=== PATIENT | male | born 1965 | race African-American/Black ===

== ENCOUNTER 2025-08-04 14:29 | Outpatient (AMB) | payer MEDICARE, SELFPAY ==
--- OUTSIDE RECORDS SUMMARY | 2025-07-29 23:59 | XMS_ITS | Continuity of Care Document ---
Author Organization [facility] Address [address] [place] [id number]- Care Team Providers Care Rn Training Name Role Phone Ian GALLOWAY, Samina Villarreal Primary [facility] Phys[id number] Date(s): 06/25/25 - 07/29/25 [facility] [address] [place] [address]- Attending Physician: Tim Pacheco MD Admitting Physician: Tim Pacheco MD Referring Physician: Not on Staff, Referring MD Encounter Type: Pre-OutPatient One Time Allergies, Adverse Reactions, Alerts No Known Allergies Medications aspirin 81 mg oral tablet, chewable 81 mg, By Mouth, Every 12 hours, # 90 tablet, Refills 0, Tot. Refills 0, Maintenance, 01/20/25 9:29:00 AM EDT, Route to Pharmacy Electronically, [id number], Partial fill upon patient request if the prescription is for a schedule II opioid drug., 203, cm, 01/20/25 7:53:00 EDT, Height, 120, kg, 01/20/25 7:53:00 EDT, Dry Weight Start Date: 01/20/25 Status: Ordered Medication Dispense Status: Completed Quantity: 90.0 Unit: tablet Total Allowed Fills: 1 Fills Dispensed: 0 atorvastatin 40 mg oral tablet 1 tablet = 40 mg, By Mouth, Daily, # 90 tablet, 0 Refills, Maintenance, 10/02/24 1:48:00 AM EST, Tablet, Partial fill upon patient request if the prescription is for a schedule II opioid drug. Start Date: 10/02/24 Status: Ordered Medication Dispense Status: Completed Quantity: 90.0 Unit: tablet Total Allowed Fills: 1 Fills Dispensed: 0 carvedilol 6.25 mg oral tablet 6.25 mg, 1, tablet, By Mouth, 2 times a day, # 60 tablet, Refills 0, Maintenance, 10/02/24 1:49:00 AM EST, Partial fill upon patient request if the prescription is for a schedule II opioid drug. Start Date: 10/02/24 Status: Ordered Medication Dispense Status: Completed Quantity: 60.0 Unit: tablet Total Allowed Fills: 1 Fills Dispensed: 0 furosemide 40 mg oral tablet 40 mg, 1, tablet, By Mouth, 2 times a day, # 30 tablet, Refills 0, Maintenance, 10/02/24 1:50:00 AMEST, Partial fill upon patient request if the prescription is for a schedule II opioid drug. Start Date: 10/02/24 Status: Ordered Medication Dispense Status: Completed Quantity: 30.0 Unit: tablet Total Allowed Fills: 1 Fills Dispensed: 0 gabapentin 300 mg oral capsule 300 mg, 1, capsule, By Mouth, Daily at bedtime, Refills 0, Maintenance, 10/02/24 1:49:00 AM EST, Partial fill upon patient request if the prescription is for a schedule II opioid drug. Start Date: 10/02/24 Status: Ordered Medication Dispense Status: Completed Total Allowed Fills: 1 Fills Dispensed: 0 metFORMIN 500 mg oral tablet 1 tablet = 500 mg, By Mouth, 2 times a day, # 180 tablet, 0 Refills, Maintenance, 10/02/24 1:49:00 AM EST, Tablet, Partial fill upon patient request if the prescription is for a schedule II opioid drug. Start Date: 10/02/24 Status: Ordered Medication Dispense Status: Completed Quantity: 180.0 Unit: tablet Total Allowed Fills: 1 Fills Dispensed: 0 nortriptyline 50 mg oral capsule 50 mg, 1, capsule, By Mouth, 2 times a day, # 270 capsule, Refills 0, Maintenance, 10/02/24 1:48:00AM EST, Partial fill upon patient request if the prescription is for a schedule II opioid drug. Start Date: 10/02/24 Status: Ordered Medication Dispense Status: Completed Quantity: 270.0 Unit: capsule Total Allowed Fills: 1 Fills Dispensed: 0 Tylenol 325 mg oral tablet 650 mg, 2, tablet, By Mouth, Every 4 hours, PRN, # 120 tablet, Refills 0, Tot. Refills 0, Maintenance, for pain, 01/20/25 9:29:00 AM EDT, Route to Pharmacy Electronically, [facility] #[id number],Partial fill upon patient request if the prescription is for a schedule II opioid drug., 203, cm, 01/20/25 7:53:00 EDT, Height, 120, kg, 01/20/25 7:53:00 EDT, Dry Weight Start Date: 01/20/25 Status: Ordered Medication Dispense Status: Completed Quantity: 120.0 Unit: tablet Total Allowed Fills: 1 Fills Dispensed: 0 Problem List Condition Confirmation Course Effective Dates Status Health St atus Informant Pacemaker Confirmed Active Diabetes mellitus Confirmed Active Diastolic heart failure with preserved ejection fraction Confirmed Active HLD (hyperlipidemia) Confirmed Active 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 Urinary tract infection Confirmed Active Social History Social History Type Response Smoking Status Never (less than 100 in lifetime) entered on: 10/01/24 Sexual Orientation Self described orien tation: ; Straight or heterosexual Sex Sex Representation Male (finding) Patient Care team information Care Team Personnel Name: Savannah Llanes Position: [facility] Outreach Member Role: Lifetime Consulting Physician Name: Manuel Jauregui RN Position: [facility] RN Member Role: Primary Care Nurse Name: Ian GALLOWAY, Samina Villarreal Position: Reference Physician Member Role: PCP Address: [address] [place] [address] Telecom: Care Team Related Persons Name: ANTONIO TATUM Insurance Providers Guarantor name: RONA Health Plan Information #: 1 Payer: [facility] OPT Payer Identifier: NA Member Number: [id number] Group Number: [facility] Subscriber Identifier: [id number] Relationship to Subscriber: self Coverage Type: Medicare Managed Care (Includes Medicare Advantage Plans) Coverage Verification Date: RONA Telecom: Address: Health Plan Information #: 2 Payer: [employer] Payer Identifier: NA Member Number: [id number] Group Number: Subscriber Identifier: [id number] Relationship to Subscriber: self Coverage Type: MEDICAID Coverage Verification Date: RONA Telecom: Address:
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
[2025-08-04 14:49] VITALS: BP 140/80; PULSE 68; O2SAT 97; BMI 29.7
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
--- OUTSIDE RECORDS SUMMARY | 2025-08-04 18:51 | XMS_ITS | Encounter Summary ---
Author Organization [facility] Address [address] [place] [address] Care Team Providers Care Aerial Photographer Name Role Phone Isaias Tuttle Primary Care Provider [phone] Reason for Visit * Reason Onset Date Comments Transfer of care 08/03/2025 Encounter Details Date Type Department Care Team (Late st Contact Info) Description 08/03/2025 Telephone [facility] [address] [place] [phone] Bijan Hidalgo MD [address] [place] [address] [address] [place] [phone] Social History Tobacco Use Types Packs/Day Years Used Date Smoking Tobacco: Former Cigarettes Cigars Smokeless Tobacco: Never Comments:Cigars ocassionally Alcohol Use Standard Drinks/Week Comments Not Currently 0 (1 standard drink = 0.6 oz pur e alcohol) ocassional - once per month Sex and Gender Information Value Date Recorded Sex Assigned at Not on file Legal Sex Male 10:35 AM EST Gender Identity Not on file Sexual Orientation Not on file documented as of this encounter Progress Notes * Mei Flores - 08/04/2025 2:52 PM EDT 08/04/25 I received the CAIN from Dr. Calderon signed no . She will not take on this patient at this time. * Mei Flores - 08/03/2025 3:50 PM EDT 08/03/25 I received the CAIN from the [facility]. I will give it to Dr. Calderon. Please note that mahesh been refusing CAIN due to the fact that she has reduced some of her time in the office. I will give it to her and will see what she says. * Apolonia Burns - 08/03/2025 1:48 PM EDT 08/03/25. I received the signed Transfer of Care Form back from Dr Hidalgo. I sent it to Agatha Flores at the [facility] office for Dr Calderon to sign. * Apolonia Burns - 08/03/2025 1:28 PM EDT 08/03/25. Transfer of Care Form given to Dr Hidalgo's medical record librarians teacher for him to sign. * Klaudia Olson - 08/03/2025 11:15 AM EDT The patient would like to transfer care from Dr. Hidalgo to Dr. Calderon. I have filled out transfer of care paperwork and handed it to you. documented in this encounter Plan of Treatment Upcoming Encounters Date Type Department Care Team (Late st Contact Info) Description 08/05/2025 3:15 PM EDT Clinical Support [facility] [address] [place] [phone] 01/18/2026 9:00 AM EDT Ancillary Procedure [facility] [address] [facility] [address] [place] [phone] documented as of this encounter Goals Goal Patient Goal Type Associated Problems Recent Progress Patient-Stated? Author Decrease Wound Volume by X% by date (in notes) Care Plan Impaired Tissue On track( 025 4:33 PM EDT) Marisol Suarez RN Patient [...] needed related to ulceration/compr omised skin integrity. No Marisol Hennessy RN documented as of this encounter Visit Diagnoses Not on filedocumented in this encounter Additional Health Concerns Active Problems Noted Date Diagnosed Date Impaired Tissue 10/28/2024 Education needed on impact of smoking on wound 0 10/28/2024 Education needed related to ulceration/compromised skin integrity. 10/28/2024 Infection Onset Date Last Indicated Resolved Time ESBL 09/25/2024 10/28/2024 documented as of this encounter Care Teams Aerial Photographer Relationship Specialty Start Date End Date Isaias Tuttle PA [address] [place] [address] PCP - General Internal Medicine 07/22/25 documented as of this encounter
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
--- OUTSIDE RECORDS SUMMARY | 2025-08-04 18:51 | XMS_ITS | Clinical Summary ---
Author Organization [facility] Address [address] [place] [address] Phone Care Team Providers Care Operations Vocational Instructor Name Role Phone Isaias Tuttle PA-C Primary Care Provider [phone] Allergies No known active allergies Medications aspirin 81 MG EC tablet Take 81 mg by mouth daily. 5 Active carvedilol (COREG) 6.25 MG tablet Take 6.25 mg by mouth 2 (two) times a day with meals. 5 Active cholecalciferol (VITAMIN D3) 50,000 unit capsule Take 50,000 Units by mouth once a week. 5 Active furosemide (LASIX) 40 MG tablet Take 40 mg by mouth 2 (two) times a day. 4 Active gabapentin (NEURONTIN) 300 MG capsule Take 300 mg by mouth daily. 4 Active ketoconazole 2 % cream Apply 1 Application topically as needed. 4 Active metFORMIN (GLUCOPHAGE) 500 MG tablet Take 500 mg by mouth 2 (two) times a day with meals. 4 Active sulfamethoxazol e-trimethoprim (BACTRIM DS) 800-160 mg per tablet Take 1 tablet by mouth 2 (two) times a day. Active tadalafiL (CIALIS) 20 MG tablet Take 20 mg by mouth daily as needed. 5 Active selenium sulfide 2.25 % Sham Use in the shower, lather into entire body and let sit for 5 minutes and then wash out. Alternate with the ketoconazole shampoo 4 09/16/20 25 Active polyethylene glycol (MIRALAX) 17 gram packet Take 17 g by mouth daily as needed. Active nortriptyline (PAMELOR) 50 MG capsule Take 50 mg by mouth 2 (two) times a day. 4 Active atorvastatin (LIPITOR) 40 MG tablet Take 1 tablet (40 mg total) by mouth daily. 90 tablet 3 5 Active fluconazole (DIFLUCAN) 150 MG tablet Take 1 tablet (150 mg total) by mouth daily as needed (yeast infection - buttermaker helper antibiotics). 10 tablet 5 Active ketoconazole (NIZORAL) 2 % shampoo Apply topically. Apply to the affected area every Saturday, Saturday and Saturday. Use in the shower, lather into entire body and let sit for 5 minutes and then wash out. Alternate with the selsun blue shampoo. 4 09/12/20 25 Active Active Problems Problem Noted Date Diagnosed Date Routine general medical exam ination at a health care facility 06/08/2025 Assessment & Plan (06/08/2025 1:12 PM EDT): We will obtain a CMP, hemoglobin A1c, TSH and lipid panel Annual physical 1 year Mixed hyperlipidemia 06/08/2025 Chronic congestive heart failure 06/08/2025 Type 2 diabetes mellitus wit hout complication, without long-term current use of insulin 06/08/2025 Osteomyelitis 06/08/2025 Flu vaccine need 06/08/2025 Encounters Date Type Department Care Team Description 07/22/2025 Refill [facility] [address] [place] [address] Isaias Tuttle PA-C Medication Refill 07/11/2025 Refill [facility] [address] [facility] [place] [address] Isaias Tuttle PA-C Medication Refill 06/08/2025 1:00 PM EDT Office Visit [facility] [address] [place] [address] Isaias Tuttle PA-C Routine general medical examination at a health care facility (Primary Dx); Flu vaccine need; Mixed hyperlipidemia; Type 2 diabetes mellitus without complication, without long-term current use of insulin; Chronic congestive heart failure, unspecified heart failure type; Osteomyelitis, unspecified site, unspecified type 06/08/2025 Refill [facility] [address] [place] [address] Isaias Tuttle PA-C Request For Order(s) 06/08/2025 Transcribe Orders [facility] [address] [place] [address] Isaias Tuttle PA-C Routine general medical examination at a health care facility (Primary Dx); Mixed hyperlipidemia; Type 2 diabetes mellitus without complication, without long-term current use of insulin 06/08/2025 Orders Only [facility] [address] [place] [address] Ashley Bateman CMA 06/08/2025 Documentation [facility] [address] [place] [address] Isaias Tuttle PA-C from Last 3 Months Immunizations Immunization Administration Dates Next Due COVID-19 (Pre-07/29) Pfizer Vaccine, mRNA, PF 10/09/2021,01/22/2021,12/31/2020 COVID-19 Moderna Spikevax Vaccine 12+ 09/17/2023 INFLUENZA, SPLIT VIRUS, TRIVALENT PF 06/08/2025 Influenza Quadrivalent Preservative Free IM 09/06,10/31/2020,07/17/2019 Pneumococcal polysaccharide PPSV23 05/26/2009 Tdap 05/26/2009 Zoster recombinant 10/27/2020,10/14/2019, 019 Family History Medical History Relation Comments Atrial fibrillation Brother 1 Diabetes Brother 2 Obesity Brother 2 No Known Problems Brother 3 No Known Problems Daughter 1 No Known Problems Daughter 2 Stroke Father Heart attack Maternal Grandfather No Known Problems Mother No Known Problems Son Relation Status Comments Brother 1 Alive Brother 2 Alive Brother 3 Alive Daughter 1 Alive Daughter 2 Alive Father Alive Maternal Grandfather Mother Alive Son Alive Social History Tobacco Use Types Packs/Day Years Used Date Smoking Tobacco: Some Days Cigars Smokeless Tobacco: Never Tobacco Cessation:Ready to Q uit: Not Asked; Counseling Given: Not Answered Comments:1-2 x year Alcohol Use Standard Drinks/Week [...] high school, GED, job training, learning the [place]ym[place] language, technical skills, or developing parenting skills)? [...] on file Sexual Orientation Not on file Last Filed Vital Signs Vital Sign Reading Time Taken Comments Blood Pressure 120/68 06/08/2025 1:11 PM EDT Pulse 75 06/08/2025 1:11 PM EDT Temperature - - Respiratory Rate 16 06/08/2025 1:11 PM EDT Oxygen Saturation 95% 06/08/2025 1:11 PM EDT Inhaled Oxygen Concentration - - Weight - - Height - - Body Mass Index - - Plan of Treatment Upcoming Encounters Date Type Department Care Team (Late st Contact Info) Description 09/08/2025 8:40 AM EST Office Visit [facility] [address] [place] [address] Isaias Tuttle PA-C [address] [place] [address] [email or web address] Health Maintenance Due Date Last Done Comments HEPATITIS C SCREENING 1983 HIV ONE-TIME SCREENING (18-65 YEARS) 1983 PNEUMOCOCCAL VACCINES (50+ years) (2 of 2 - PCV) 05/26/2010 05/26/2009 COLOGUARD 2010 COLONOSCOPY 2010 COLORECTAL CANCER SCREENING 2010 FIT TEST 2010 FOBT 2010 SIGMOIDOSCOPY 2010 VIRTUAL COLONOSCOPY 2010 RSV VACCINE (1 - Risk 50-74 years 1-dose series) 2015 Adult Td,Tdap Booster 05/26/2019 05/26/2009 COVID-19 VACCINE ( season) 2025 09/17/2023, 10/09/2021, 01/22/2021, Additional history exists DIABETIC EYE EXAM 06/08/2025 02/12/2023, 02/08/2022 URINE MICROALBUMIN/CREATININE RATIO 06/08/2025 CREATININE LEVEL 09/14/2025 09/14/2024 HEMOGLOBIN A1C 11/07/2025 05/07/2025, 10/16/2023 BLOOD PRESSURE 12/06/2025 06/08/2025 DEPRESSION SCREENING 06/02/2026 06/02/2025 SMOKING Hx and SMOKELESS TOBACCO SCREENING 06/08/2026 06/08/2025 ZOSTER VACCINES Completed 10/27/2020, 05/2020, 06/29/2019 INFLUENZA VACCINE Completed 06/08/2025, , 10/31/2020, Additional history exists HEPATITIS A VACCINES Aged Out No long er eligible based on patient's age to complete this topic HIB VACCINES Aged Out No longer eligi ble based on patient's age to complete this topic MENINGOCOCCAL VACCINES (ACWY) Aged Out No longer eligible based on patient's age to complete this topic MENINGOCOCCAL VACCINES (B) Aged Out N o longer eligible based on patient's age to complete this topic Medical Devices Not on file Procedures Procedure Name Priority Date/Time Associated Diagnosis Comments OUTSIDE SERUM CREATININE LEVEL Routine 09/14/2024 from Last 3 Months or Most Recently Relevant to Health Maintenance Results * (ABNORMAL) Outside Serum Creatinine Level (09/14/2024) Creatinine, serum - External 0.64(A) 0.8 - 1.3 mg/dL Historical Provider LAB BLOOD ORDERABLES Karen l Result from Last 3 Months or Most Recently Relevant to Health Maintenance Insurance MEDICARE PART A & B CARE MEDICARE REPLACEMENT MEDICARE PART A & B CARE MEDICARE REPLACEMENT MEDICARE PART A & B Member Subscriber Plan / Payer (Ef fective 2011-Present) Name:Danny Fox Member ID:[id number] Relation to Subscriber:Self Name:Danny Fox Subscriber ID:[id number] Payer ID:[id number] Group ID:Not on file Type:Medicare Address: [employer] [address] CARE MEDICARE REPLACEMENT MEDICARE PART A & B CARE MEDICARE REPLACEMENT [address] [place] [address] [place] [address] MEDICARE PART A & B [facility] MEDICARE REPLACEMENT MEDICARE PART A & B [facility] MEDICARE REPLACEMENT Care Teams Operations Vocational Instructor Relationship Specialty Start Date End Date Isaias Tuttel PA-C [address] [place] [address] [email or web address] PCP - General Physician Car Inspector 06/08/25 Additional Source Comments The information contained in this document represents components of the legal health record. It is not the complete legal health record.[facility]
--- OUTSIDE RECORDS SUMMARY | 2025-08-04 18:51 | XMS_ITS | Clinical Summary ---
Author Organization [facility] [address] [facility]ly [facility], later [facility] Building Address [address] [place] [phone] Phone Care Team Providers Care Anodizing Line Operator Name Role Phone Isaias Tuttle Primary Care Provider [phone] Allergies No known active allergies Medications ketoconazole (NIZORAL) 2 % cream Apply 1 Application topically if needed. 06/26/20 24 Active ondansetron (ZOFRAN) 4 mg tablet Take 1 tablet (4 mg total) by mouth if needed. 06/25/20 24 Active furosemide (LASIX) 40 mg tablet TAKE 1 TABLET BY MOUTH TWICE DAILY.PLEASE COMPLETE LABS BEFORE NEXT REFILL IS NEEDED 180 tablet 04/21/20 25 Active carvediloL (COREG) 6.25 mg tablet TAKE 1 TABLET BY MOUTH TWICE DAILY WITH FOOD 180 tablet 04/23/20 25 Active nortriptyline (PAMELOR) 50 mg capsule Take 1 capsule (50 mg total) by mouth 2 (two) times a day. 180 capsule 1 05/03/20 25 Active Additional Information Patient taking differently:50 mg oralDaily, Reported on 08/03/2025 fluconazole (DIFLUCAN) 150 mg tablet Take 1 tablet (150 mg total) by mouth if needed. 03/17/20 25 Active metFORMIN (GLUCOPHAGE) 500 mg tablet TAKE 1 TABLET BY MOUTH TWICE DAILY WITH MEALS 180 tablet 1 05/25/20 25 Active aspirin 81 mg EC tablet TAKE 1 TABLET BY MOUTH EVERY DAY 90 tablet 3 06/01/20 25 Active atorvastatin (LIPITOR) 40 mg tablet TAKE 1 TABLET BY MOUTH EVERY DAY 90 tablet 1 06/04/20 25 Active gabapentin (NEURONTIN) 300 mg capsule TAKE 1 CAPSULE BY MOUTH EVERY MORNING 90 capsule 1 06/04/20 25 Active cholecalciferol (VITAMIN D-3) 1,250 mcg (50,000 unit) capsule Take 1 capsule (50,000 Units total) by mouth 1 (one) time per week. 02/05/20 25 025 Discontinu ed(Therapy completed) mupirocin (BACTROBAN) 2 % ointmentIndicati ons:Abrasion of left hip, initial encounter,Non-pr essure chronic ulcer of skin of other sites limited to breakdown of skin ([facility] V24, [facility] V28),Chronic venous hypertension (idiopathic) with ulcer of right lower extremity (CODE) ([facility] V24, [facility] V28),Non-pressur e chronic ulcer of other part of right lower leg with fat layer exposed ([facility] V24, [facility] V28) Apply topically 1 (one) time each day. Apply to wounds as directed 22 g 1 06/29/20 025 Active Problems Problem Noted Date Diagnosed Date Pressure injury of left isch ium, stage 2 ([facility] V24, [facility] V28) 07/20/2025 Osteomyelitis, pelvis ([facility] V24, [facility] V28) 06/29/2025 Abrasion of left hip 06/29/2025 Non-pressure chronic ulcer o f skin of other sites limited to breakdown of skin ([facility] V24, [facility] V28) 06/29/2025 Chronic venous hypertension (idiopathic) with ulcer of right lower extremity (CODE) ([facility] V24, [facility] V28) 06/29/2025 Non-pressure chronic ulcer o f other part of right lower leg with fat layer exposed ([facility] V24, [facility] V28) 06/29/2025 Pressure ulcer of coccygeal region, stage 3 ([facility] V24, [facility] V28) 04/07/2025 Pressure ulcer of left hip, stage 3 ([facility] V24, [facility] V28) 04/07/2025 Hyperkeratosis of skin 03/17/2025 Cardiac resynchronization th erapy defibrillator (GLASS MOULD CLEANER-D) in place 01/15/2025 Assessment & Plan (08/03/2025 12:59 PM EDT): No recent history of VT breakthrough. ICD in place guideline directed therapy. GLASS MOULD CLEANER-D therapy in place to also help with some of the dyskinesis. Assessment & Plan (01/15/2025 7:28 PM EDT): Patient has a [employer] GLASS MOULD CLEANER therapy device in place. I am not able to interrogate it with our equipment here in our office the patient will be enrolled in our pacemaker clinic so they can also establish transtelephonic monitoring through his monitor box at home. Patient states he has never had a discharge from that a box. And he says that for the most part has been told is not pacing which is unusual since the device should be pacing 100% of the time to give him correction of his dyssynchrony. This can be evaluated when he has his device interrogated The above note was prepared with the help of voice recognition software. Please excuse any grammatical or spelling errors that may have occurred Pressure injury of sacral re gion, stage 3 (CMS/HCC V24, CMS/HCC V28) 10/28/2024 Chronic congestive heart failure (CMS/HCC V24, C MS/HCC V28) 09/14/2024 Assessment & Plan (08/03/2025 12:59 PM EDT): History of CHF well compensated recent echocardiogram shows a relatively decent left ventricular ejection fraction at this time on medical management which is guideline directed Assessment & Plan (01/15/2025 7:28 PM EDT): Patient with a history of systolic heart failure by report and echocardiographic evidence patient returned back to baseline whether this was due to GLASS MOULD CLEANER therapy which she does not think he is pacing that much or whether its due to medical management is not clear but on exam the patient appears to be very well compensated from a cardiovascular standpoint. Patient's had no chest pain or pressure. Granted he is not capable of functioning to a level of 4 METS of exercise but is present level I agree with the previous evaluation that he presents an acceptable risk for planned orthopedic surgery Orders: Ambulatory referral to Cardiology Transthoracic echocardiogram (TTE) complete with PRN contrast, bubble, strain, and 3D order panel; Future Paraplegia ([facility], [facility] V28) 09/14/2024 Neurogenic bladder 09/14/2024 Tinea 09/14/2024 Nonsustained ventricular tac hycardia ([facility], [facility] V28) 09/14/2024 Type 2 diabetes mellitus wit hout complication, without long-term current use of insulin ([facility], [facility] V28) 09/14/2024 Pressure injury of sacral re gion, stage 2 ([facility], [facility] V28) 09/14/2024 Encounters Date Type Department Care Team Description 08/03/2025 10:50 AM EDT Office Visit [facility] [address] [place] [address] Bijan Hidalgo MD Cardiac resynchronization therapy defibrillator (GLASS MOULD CLEANER-D) in place (Primary Dx); Chronic congestive heart failure, unspecified heart failure type ([facility], [facility] V28) 08/03/2025 Telephone [facility] [address] [place] [phone] Bijan Hidalgo MD 07/29/2025 12:25 PM EDT Ancillary Procedure [facility] [address] [place] [phone] 07/21/2025 Telephone [facility] - [address] [place] [phone] Samina Sosa NP 07/20/2025 10:30 AM EDT Office Visit [facility] [address] [place] [phone] Walter Benjamin PA Pressure injury of sacral region, stage 3 ([facility], [facility] V28) (Primary Dx); Osteomyelitis, pelvis ([facility], [facility] V28); Abrasion of left hip, subsequent encounter; Non-pressure chronic ulcer of skin of other sites limited to breakdown of skin ([facility] V24, CMS/HCC V28); Chronic venous hypertension (idiopathic) with ulcer of right lower extremity (CODE) ([facility] V24, [facility] V28); Non-pressure chronic ulcer of other part of right lower leg with fat layer exposed ([facility] V24, CMS/HCC V28); Pressure injury of left ischium, stage 3 ([facility] V24, CMS/HCC V28) 07/06/2025 10:25 PM EDT Ancillary Procedure [facility] [address] [place] [phone] 06/29/2025 10:30 AM EDT Office Visit [facility] [address] [place] [phone] Walter Benjamin PA Pressure injury of sacral region, stage 3 ([facility] V24, [facility] V28) (Primary Dx); Osteomyelitis, pelvis ([facility] V24, [facility] V28); Abrasion of left hip, initial encounter; Non-pressure chronic ulcer of skin of other sites limited to breakdown of skin ([facility] V24, CMS/HCC V28); Chronic venous hypertension (idiopathic) with ulcer of right lower extremity (CODE) ([facility] V24, [facility] V28); Non-pressure chronic ulcer of other part of right lower leg with fat layer exposed ([facility] V24, [facility] V28) 06/24/2025 Telephone [facility] [address] [place] [phone] Danielle Rocha RN 06/22/2025 7:50 AM EDT - 06/22/2025 11:59 PM EDT Hospital Encounter [facility] [address] [place] [phone] Pressure injury of sacral region, stage 3 ([facility], [facility] V[facility]) Discharge Disposition: Home or Self Care 06/21/2025 Telephone Internal Medicine - [address] [place] [phone] Samina Sosa NP 06/21/2025 Telephone [facility] - [address] [place], [place] [phone] Samina Sosa NP 06/14/2025 Telephone [facility] - [address] [place], [place] [phone] Samina Sosa NP 06/09/2025 10:30 AM EDT Office Visit [facility] [address] [place] [phone] Walter Benjamin PA Pressure injury of sacral region, stage 3 ([facility] V24, [facility] V28) (Primary Dx); Osteomyelitis, pelvis (CMS/HCC V24, [facility] V28) 05/28/2025 9:10 AM EDT Ancillary Procedure [facility] [address] [place] [address] 05/19/2025 3:00 PM EDT Office Visit [facility] [address] [place] [phone] Walter Benjamin PA Pressure injury of sacral region, stage 3 (CMS/HCC V24, CMS/HCC V28) (Primary Dx); Pressure ulcer of coccygeal region, stage 3 (CMS/HCC V24, [facility] V28) 05/19/2025 Telephone [facility] - [address] [place], [place] [phone] Samina Sosa NP 05/13/2025 Telephone [facility] - [address] [place], [place] [phone] Samina Sosa NP 05/12/2025 Telephone [facility] - [address] [place], [place] [phone] Samina Sosa NP 05/10/2025 Telephone [facility] - [address] [place], [place] [phone] Samina Sosa NP 05/07/2025 10:50 AM EDT Lab Draw Station - [address] Elevated alkaline phosphatase level; Type 2 diabetes mellitus without complication, without long-term current use of insulin ([facility], [facility] V28); Hyperlipidemia, unspecified hyperlipidemia type; Tinea; Chronic congestive heart failure, unspecified heart failure type ([facility], [facility] V28) 05/07/2025 10:30 AM EDT Office Visit Internal Medicine - [address] [phone] Samina Sosa NP Type 2 diabetes mellitus without complication, without long-term current use of insulin ([facility], [facility] V28) (Primary Dx); Tinea; Chronic congestive heart failure, unspecified heart failure type ([facility], [facility] V28); Hyperlipidemia, unspecified hyperlipidemia type; Elevated alkaline phosphatase level; Osteomyelitis, unspecified site, unspecified type ([facility], [facility] V28); Pressure injury of skin, unspecified injury stage, unspecified location from Last 3 Months Surgical History Surgery Date Site/Laterality Comments PACEMAKER IMPLANT SPINE SURGERY LEG SURGERY 12/05/2024 - 01/04/2025 Left repair fracture left tibia 2 places Medical History Medical History Date Comments CHF (congestive heart failure) ([facility], [facility] V28) Diabetes mellitus ([facility], [facility] V28) Paraplegia ([facility], [facility] V[facility]) 2008 Neurogenic bladder Tibial fracture Social History Tobacco Use Types Packs/Day Years [...] on file Sexual Orientation Not on file Obstetrics History Last Filed Vital Signs Vital Sign Reading Time Taken Comments Blood Pressure 128/75 07/20/2025 10:02 AM EDT Pulse 82 08/03/2025 11:12 AM EDT Temperature 36.7 C (98.1 F) 07/20/2025 10:02 AM EDT Respiratory Rate 17 07/20/2025 10:02 AM EDT Oxygen Saturation 98% 08/03/2025 11:12 AM EDT Inhaled Oxygen Concentration - - Weight 122 kg (270 lb) 08/03/2025 11:12 AM EDT Height 203.2 cm (6' 8 ) 08/03/2025 11:12 AM EDT Body Mass Index 29.66 08/03/2025 11:12 AM EDT Plan of Treatment Upcoming Encounters Date Type Department Care Team (Late st Contact Info) Description 08/05/2025 3:15 PM EDT Clinical Support [facility] [address] [place] [phone] 01/18/2026 9:00 AM EDT Ancillary Procedure [facility] [address] [facility] [address] [place] [phone] Health Maintenance Due Date Last Done Comments Diabetes: Annual Foot Exam 1975 Diabetes: Annual Retina Eye Exam 1975 Hepatitis B Vaccines (1 of 3 - 19+ 3-dose series) 1984 Pneumococcal Vaccine: 50+ Years (2 of 2 - PCV) 05/26/2010 05/26/2009 RSV Immunization Adult Patients (1 - Risk 50-74 years 1-dose series) 2015 DTaP,Tdap,and Td Vaccines (2 - Td or Tdap) 05/26/2019 05/26/2009 HIV Screening 2024 Hepatitis C Screening 2024 Medicare Annual Wellness Visit 2024 Social Influencers of Health Screening 2024 Diabetes: Annual Urine Albumin-Creatinine Ratio (uACR) 09/14/2024 Depression Screening 10/07/2024 COVID-19 Vaccine ( season) 2025 09/17/2023, 10/09/2021, 01/22/2021, Additional history exists Diabetes: Blood Sugar Control Test (HGBA1C) 11/07/2025 05/07/2025, 09/14/2024, 10/16/2023 Diabetes: Annual GFR (Glomerular Filtration Rate) 06/09/2026 06/09/2025, 09/14/2024, 05/27/2024 Hypertension/CHF/CAD Annual BMP Blood Test 06/09/2026 06/09/2025, 09/14/2024, 05/27/2024 Colorectal Cancer Screening: FIT-DNA (Cologuard) 09/25/2026 09/25/2023 Cholesterol Screening (Lipid Panel) 05/07/2030 05/07/2025, 09/14/2024, 10/16/2023 Zoster Vaccines Completed 10/27/2020, 05/2020, 06/29/2019 Influenza Vaccine Completed 06/08/2025, , 10/31/2020, Additional history exists HIB Vaccines Aged Out No longer eligi ble based on patient's age to complete this topic HPV Vaccines Aged Out No longer eligi ble based on patient's age to complete this topic Hepatitis A Vaccines Aged Out No long er eligible based on patient's age to complete this topic IPV Vaccines Aged Out No longer eligi ble based on patient's age to complete this topic MMR Vaccines Aged Out No longer eligi ble based on patient's age to complete this topic Meningococcal ACWY Vaccine Aged Out N o longer eligible based on patient's age to complete this topic Meningococcal B Vaccine Aged Out No l onger eligible based on patient's age to complete this topic RSV Immunization Patients Under 20 months Aged Out No longer eligible based on patient's age to complete this topic Varicella Vaccines Aged Out No longer eligible based on patient's age to complete this topic Goals Goal Patient Goal Type Associated Problems Recent Progress Patient-Stated? Author Decrease Wound Volume by X% by date (in notes) Care Plan Impaired Tissue On track( 4:33 PM EDT) Marisol Suarez RN Patient and Caregiver Understand Wound Care Education Care Plan Impaired Tissue On track( 4:33 PM EDT) Marisol Suarez RN Wound volume breakdown reduced by X% by week 4 Care Plan Impaired Tissue No Marisol Hennessy RN Wound volume breakdown reduced by X% by week 8 Care Plan Impaired Tissue No Marisol Hennessy RN Wound volume breakdown reduced by X% by week 12 Care Plan Impaired Tissue No Marisol Hennessy RN Quit using tobacco (cigarettes, smokeless, etc) Care Plan Education needed on impact of smoking on wound No Marisol Hennessy RN Reduce tobacco use (cigarettes, smokeless, etc) Care Plan Education needed on impact of smoking on wound No Marisol Hennessy RN Decrease Wound Volume by X% by date (in notes) Care Plan Education needed on impact of smoking on wound No Marisol Hennessy RN Patient and Caregiver Understand Wound Care Education Care Plan Education needed related to ulceration/compr omised skin integrity. No Marisol Hennessy RN Medical Devices Implanted Type Area Food Service Lead Device Identifier Shelf Expiration Date Model / Serial / Lot Medt-Card [place]us Xt Hf Quad [id number] Implanted:11/08 (Quantity not on file) Cardiac GLASS MOULD CLEANER-D ICD [employer] - CARDIAC RHYTH-CRDM [place] XT HF QUAD [id number] / [id number] / Medt-Card [id number] Implanted:11/08 (Quantity not on file) Cardiac GLASS MOULD CLEANER-D ICD [employer] - CARDIAC RHYTH-CRDM [id number] / [id number] / Procedures Procedure Name Priority Date/Time Associated Diagnosis Comments CARDIAC DEVICE CHECK- REMOTE- MURJ Routine 07/29/2025 12:24 PM EDT DEBRIDEMENT Routine 07/20/2025 10:30 AM EDT Pressure injury of left ischium, stage 3 (CMS/HCC V24, CMS/HCC V28) DEBRIDEMENT Routine 07/20/2025 10:30 AM EDT Pressure injury of sacral region, stage 3 (CMS/HCC V24, CMS/HCC V28) CARDIAC DEVICE CHECK- REMOTE- MURJ Routine 07/06/2025 10:21 PM EDT DEBRIDEMENT Routine 06/29/2025 10:30 AM EDT Abrasion of left hip, initial encounter Non-pressure chronic ulcer of skin of other sites limited to breakdown of skin (CMS/HCC V24, CMS/HCC V28) DEBRIDEMENT Routine 06/29/2025 10:30 AM EDT Pressure injury of sacral region, stage 3 (CMS/HCC V24, CMS/HCC V28) Osteomyelitis, pelvis (CMS/HCC V24, CMS/HCC V28) MR PELVIS WO AND W CONTRAST Routine 06/22/2025 9:36 AM EDT Pressure injury of sacral region, stage 3 (CMS/HCC V24, CMS/HCC V28) CBC WITH AUTO DIFFERENTIAL Routine 06/09/2025 11:11 AM EDT Pressure injury of sacral region, stage 3 (CMS/HCC V24, CMS/HCC V28) Pressure ulcer of coccygeal region, stage 3 (CMS/HCC V24, CMS/HCC V28) CBC AND DIFFERENTIAL Routine 06/09/2025 11:11 AM EDT Pressure injury of sacral region, stage 3 (CMS/HCC V24, CMS/HCC V28) Pressure ulcer of coccygeal region, stage 3 (CMS/HCC V24, CMS/HCC V28) BASIC METABOLIC PANEL Routine 06/09/2025 11:11 AM EDT Pressure injury of sacral region, stage 3 (CMS/HCC V24, CMS/HCC V28) Pressure ulcer of coccygeal region, stage 3 (CMS/HCC V24, CMS/HCC V28) C-REACTIVE PROTEIN Routine 06/09/2025 11 :11 AM EDT Pressure injury of sacral region, stage 3 (CMS/HCC V24, CMS/HCC V28) Pressure ulcer of coccygeal region, stage 3 (CMS/HCC V24, CMS/HCC V28) CARDIAC DEVICE CHECK- REMOTE- MURJ Routine 05/28/2025 9:08 AM EDT DEBRIDEMENT Routine 05/19/2025 3:00 PM EDT Pressure injury of sacral region, stage 3 (CMS/HCC V24, CMS/HCC V28) URINALYSIS WITH REFLEX MICROSCOPIC AND CULTURE Routine 05/10/2025 4:53 PM EDT Acute cystitis without hematuria CULTURE URINE Routine 05/10/2025 4:53 PM EDT Acute cystitis without hematuria FIGUEROA URINE CULTURE TUBE Routine 05/10/2025 4:52 PM EDT Acute cystitis without hematuria URINALYSIS WITH REFLEX MICROSCOPIC AND CULTURE Routine 05/10/2025 4:52 PM EDT Acute cystitis without hematuria CBC WITH AUTO DIFFERENTIAL Routine 05/07/2025 11:03 AM EDT Tinea Chronic congestive heart failure, unspecified heart failure type (CMS/HCC V24, CMS/HCC V28) Elevated alkaline phosphatase level CBC AND DIFFERENTIAL Routine 05/07/2025 11:03 AM EDT Tinea Chronic congestive heart failure, unspecified heart failure type (CMS/HCC V24, CMS/HCC V28) Elevated alkaline phosphatase level LIPID PANEL WITH REFLEX TO DIRECT LDL Routine 05/07/2025 11:03 AM EDT Hyperlipidemia, unspecified hyperlipidemia type HEPATIC FUNCTION PANEL Routine 05/07/2025 11:03 AM EDT Elevated alkaline phosphatase level HEMOGLOBIN A1C Routine 05/07/2025 11:03 AM EDT Type 2 diabetes mellitus without complication, without long-term current use of insulin (CMS/HCC V24, CMS/HCC V28) GAMMA GLUTAMYL TRANSFERASE Routine 05/07/2025 11:03 AM EDT Elevated alkaline phosphatase level from Last 3 Months Results * Cardiac device check - Remote- MURJ (07/29/2025 12:24 PM EDT) Only the most recent of3 resultswithin the time period is included. Date Time Interrogation Session [id number] CV DEVICE CHECK Type Interrogation Session Remote CV DEVICE CHECK Implantable Pulse Generator Food Service Lead MDT CV DEVICE CHECK Implantable Pulse Generator Type GLASS MOULD CLEANER-D CV DEVICE CHECK Implantable Pulse Generator Model [id number] CV DEVICE CHECK Implantable Pulse Generator Serial Number [id number] CV DEVICE CHECK Implantable Pulse Generator Implant Date [id number] CV DEVICE CHECK Battery Remaining Longevity 116.0 CV DEVICE CHECK Battery Voltage 3.010 CV D EVICE CHECK Battery PRINTER REPAIR TECHNICIAN Trigger 2.800 CV DEVICE CHECK Capacitor Charge Time 3.600 CV DEVICE CHECK Kamaljit Statistic RA Percent Paced 0.11 CV DEVICE CHECK Atrial Tachy Statistic AT/AF [place] Percent 0.03 CV DEVICE CHECK Lead Channel Sensing Intrinsic Amplitude 1.800 CV DEVICE CHECK Lead Channel Setting Sensing Sensitivity 0.30 CV DEVICE CHECK Lead Channel Impedance Value 361 CV DEVICE CHECK Lead Channel Pacing Threshold Amplitude 0.625 CV DEVICE CHECK Lead Channel Pacing Threshold Pulse Width 0.4 CV DEVICE CHECK Lead Channel RA Pacing Threshold Date 2025-07-20 CV DEVICE CHECK Lead Channel Setting Pacing Amplitude 1.000 CV DEVICE CHECK Lead Channel Setting Pacing Pulse Width 0.4 CV DEVICE CHECK Lead Channel Sensing Intrinsic Amplitude 12.100 CV DEVICE CHECK Lead Channel Setting Sensing Sensitivity 0.30 CV DEVICE CHECK Lead Channel Impedance Value 399 CV DEVICE CHECK Lead Channel Pacing Threshold Amplitude 0.500 CV DEVICE CHECK Lead Channel Pacing Threshold Pulse Width 0.4 CV DEVICE CHECK Lead Channel RV Pacing Threshold Date 2025-07-20 CV DEVICE CHECK Lead Channel Setting Pacing Amplitude 1.500 CV DEVICE CHECK Lead Channel Setting Pacing Pulse Width 0.4 CV DEVICE CHECK Lead Channel Impedance Value 798 CV DEVICE CHECK Lead Channel Pacing Threshold Amplitude 0.750 CV DEVICE CHECK Lead Channel Pacing Threshold Pulse Width 0.4 CV DEVICE CHECK Lead Channel Pacing Threshold Date 2025-07-20 CV DEVICE CHECK Lead Channel Setting Pacing Amplitude 1.250 CV DEVICE CHECK Lead Channel Setting Pacing Pulse Width 0.4 CV DEVICE CHECK Kamaljit Setting Mode (NBG Code) DDD CV DEVICE CHECK Ventricular chambers paced during GLASS M[employer] CLE[employer]ER pacing. LVOnly CV DEVICE CHECK Kamaljit Setting Lower Rate Limit 60 CV DEVICE CHECK Kamaljit Setting AT Mode Switch Rate 171 CV DEVICE CHECK Kamaljit Setting Maximum Tracking Rate 130 CV DEVICE CHECK Kamaljit Setting Maximum Sensor Rate 130 CV DEVICE CHECK Kamaljit Setting PAV Delay 140 CV DEVICE CHECK Kamaljit Setting HORACIO Delay 130 CV DEVICE CHECK GLASS MOULD CLEANER LV-RV Delay 10 CV D EVICE CHECK Therapy Statistic Recent Shocks Delivered 0 CV DEVICE CHECK Therapy Statistic Recent Shocks Aborted 0 CV DEVICE CHECK Therapy Statistic Recent ATP Delivered 0 CV DEVICE CHECK SVC Measured Impedance 40 CV DEVICE CHECK Zone Setting Type Category AT/AF CV DEVICE CHECK Rate 171 CV DEVICE CHECK Therapies All Rx Off CV DEVICE CHECK Zone Setting Status Monitor CV DEVICE CHECK Zone ID 2 CV DEVICE CHECK Zone Setting Type Category VF CV DEVICE CHECK Rate 200 CV DEVICE CHECK Therapies ATP During Charging, 40.0Jx6 CV DEVICE CHECK Zone Setting Status On CV DEVICE CHECK Zone ID 3 CV DEVICE CHECK Zone Setting Type Category VT CV DEVICE CHECK Zone Setting Status Off CV DEVICE CHECK Zone ID 4 CV DEVICE CHECK Zone Setting Type Category VT CV DEVICE CHECK Zone Setting Status Off CV DEVICE CHECK Zone ID 5 CV DEVICE CHECK Zone Setting Type Category VT CV DEVICE CHECK Rate 150 CV DEVICE CHECK Rate 167 CV DEVICE CHECK Zone Setting Status ENABLED CV DEVICE CHECK Zone ID 6 CV DEVICE CHECK Date of Service 2025-08-02 CV DEVICE CHECK Anatomical Region Laterality Modality Device Interroga tion 07/20/2025 6:30 AM EDT Impressions 07/29/2025 7:47 AM EDT Normal Remote: No Events * Normal Device Function * Alerts or events: None * Battery: , 9.67 yrs * Sensing, impedance and thresholds reviewed * Programmed parameters reviewed * Presenting rhythm reviewed * Heart Rate Histograms reviewed * No significant changes noted Heart Failure Diagnostic: Stable * Heart failure diagnostics assessed through the device * Status: Stable * No overt HF present Narrative Procedure Note Snow Tobias MD - 07/29/2025 IMPRESSION: Normal Remote: No Events * Normal Device Function * Alerts or events: None * Battery: , 9.67 yrs * Sensing, impedance and thresholds reviewed * Programmed parameters reviewed * Presenting rhythm reviewed * Heart Rate Histograms reviewed * No significant changes noted Heart Failure Diagnostic: Stable * Heart failure diagnostics assessed through the device * Status: Stable * No overt HF present Snow Tobias MD CV IMPLANTABLE CARDIAC DEVICE PROCEDURES Final Result * Debridement Pressure Injury Left Ischial Tuberosity (07/20/2025 10:30 AM EDT) Narrative Yuan Dickerson MD - 07/20/2025 10:30 AM EDT Yuan Dickerson MD 07/23/2025 10:53 AM Debridement Pressure Injury Left Ischial Tuberosity Performed by: HAMIDA Vegas Authorized by: HAMIDA Vegas Associated wounds: Wound Pressure Injury 07/20/25 Ischial Tuberosity Left Consent: Consent obtained: Verbal Consent given by: Patient Risks discussed: Yes Time out: Immediately prior to the procedure a time out was called Debridement Details: Performed by: HAMIDA Type: surgical Level: subcutaneous tissue Pain control: Lidocaine 4% Severity of Tissue Pre Debridement: Fat layer exposed Severity of Tissue Post Debridement: Fat layer exposed Time taken: 07/20/2025 10:10 AM Length (cm): 1 Width (cm): 0.8 Depth (cm): 0.1 Area (cm^2): 0.63 Time taken: 07/20/2025 10:11 AM Length (cm): 1 Width (cm): 0.8 Depth (cm): 0.1 Percent Debrided (%): 100 Surface Area (cm^2): 0.8 Area Debrided (cm^2): 0.8 Volume (cm^3): 0.08 Tissue and other material debrided: dermis, epidermis and subcutaneous tissue Devitalized tissue debrided: slough Instrument: Curette Amount of bleeding: none Hemostasis obtained with: Not applicable Procedural pain: 0 Post-procedural pain: 0 Response to treatment: Procedure was tolerated well us Walter MEI IN CLINIC/BEDSIDE ORDERABLE S Final Result * Debridement Pressure Injury Sacrum (07/20/2025 10:30 AM EDT) Yuan Humphrey MD - 07/20/2025 10:30 AM EDT Yuan Dickerson MD 07/23/2025 10:53 AM Debridement Pressure Injury Sacrum Performed by: HAMIDA Vegas Authorized by: HAMIDA Vegas Associated wounds: Wound Pressure Injury 03/17/25 Sacrum Consent: Consent obtained: Verbal Consent given by: Patient Risks discussed: Yes Time out: Immediately prior to the procedure a time out was called Debridement Details: Performed by: HAMIDA Type: surgical Level: subcutaneous tissue Pain control: Lidocaine 4% Severity of Tissue Pre Debridement: Fat layer exposed Severity of Tissue Post Debridement: Fat layer exposed Time taken: 07/20/2025 10:08 AM Length (cm): 0.2 Width (cm): 0.6 Depth (cm): 0.1 Area (cm^2): 0.09 Time taken: 07/20/2025 10:09 AM Length (cm): 0.2 Width (cm): 0.6 Depth (cm): 0.1 Percent Debrided (%): 100 Surface Area (cm^2): 0.12 Area Debrided (cm^2): 0.12 Volume (cm^3): 0.01 Tissue and other material debrided: dermis, epidermis and subcutaneous tissue Devitalized tissue debrided: callus and slough Instrument: Curette Amount of bleeding: none Hemostasis obtained with: Not applicable Procedural pain: 0 Post-procedural pain: 0 Response to treatment: Procedure was tolerated well us Walter MEI IN CLINIC/BEDSIDE ORDERABLE S Final Result * Debridement Abrasion (cluster) Left Hip (06/29/2025 10:30 AM EDT) Yuan Humphrey MD - 06/29/2025 10:30 AM EDT HAMIDA Vegas 06/29/2025 11:23 AM Debridement Abrasion (cluster) Left Hip Performed by: HAMIDA Vegas Authorized by: HAMIDA Vegas Associated wounds: Wound Abrasion 06/29/25 Hip Left Consent: Consent obtained: Verbal Consent given by: Patient Risks discussed: Yes Time out: Immediately prior to the procedure a time out was called Debridement Details: Performed by: HAMIDA Type: selective Pain control: Lidocaine 5% Severity of Tissue Pre Debridement: Limited to breakdown of skin Severity of Tissue Post Debridement: Limited to breakdown of skin Length (cm): 1.1 (cluster of 2) Width (cm): 6 Depth (cm): 0.1 Area (cm^2): 6.6 Length (cm): 1.1 Width (cm): 6 Depth (cm): 0.1 Percent Debrided (%): 75 Surface Area (cm^2): 6.6 Area Debrided (cm^2): 4.95 Volume (cm^3): 0.66 Tissue and other material debrided: dermis and epidermis Instrument: Curette Amount of bleeding: none Hemostasis obtained with: Not applicable Procedural pain: Insensate Post-procedural pain: Insensate Response to treatment: Procedure was tolerated well us Walter MEI IN CLINIC/BEDSIDE ORDERABLE S Final Result * Debridement Pressure Injury Sacrum (06/29/2025 10:30 AM EDT) Narrative Yuan Dickerson MD - 06/29/2025 10:30 AM EDT HAMIDA Vegas 06/29/2025 11:23 AM Debridement Pressure Injury Sacrum Performed by: HAMIDA Vegas Authorized by: HAMIDA Vegas Associated wounds: Wound Pressure Injury 03/17/25 Sacrum Consent: Consent obtained: Verbal Consent given by: Patient Risks discussed: Yes Time out: Immediately prior to the procedure a time out was called Debridement Details: Performed by: PA Type: surgical Level: subcutaneous tissue Pain control: Lidocaine 4% Severity of Tissue Pre Debridement: Fat layer exposed Severity of Tissue Post Debridement: Fat layer exposed Length (cm): 0.1 Width (cm): 0.4 Depth (cm): 0.5 Area (cm^2): 0.04 Length (cm): 0.1 Width (cm): 0.4 Depth (cm): 0.5 Percent Debrided (%): 75 Surface Area (cm^2): 0.04 Area Debrided (cm^2): 0.03 Volume (cm^3): 0.02 Tissue and other material debrided: dermis, epidermis and subcutaneous tissue Devitalized tissue debrided: callus and slough Instrument: Curette Amount of bleeding: none Hemostasis obtained with: Not applicable Procedural pain: 0 Post-procedural pain: 0 Response to treatment: Procedure was tolerated well us Walter MEI IN CLINIC/BEDSIDE ORDERABLE S Final Result * MR Pelvis wo and w Contrast (06/22/2025 9:36 AM EDT) Anatomical Region Laterality Modality Pelvis, Body Magnetic Resonan ce 06/23/2025 6:28 AM EDT Impressions 06/23/2025 7:52 AM EDT Rim-enhancing collection associated with an area of osteomyelitis involving the left inferior pubic ramus extending toward the ischium and posterior acetabulum which measures approximately 5.1 x 3.0 cm. This appears to be associated with an ulcer. I suspect decubitus overlying the distal sacrum and coccyx with some abnormal enhancement at the level of the cortex. This could reflect some periostitis without nathan bone destruction -------- FINAL REPORT -------- Dictated By: Victor Hugo Martinez Dictated Date: 06/23/2025 06:28 ET Assigned Physician: Victor Hugo Martinez Reviewed and Electronically Signed By: Victor Hugo Martinez Signed Date: 06/23/2025 07:52 ET Workstation ID: [id number] Transcribed By: Self Edit Transcribed Date: 06/23/2025 06:31 ET Narrative 06/23/2025 7:52 AM EDT EXAMINATION: MRI PELVIS WITHOUT AND WITH CONTRAST CLINICAL INFORMATION: History of osteomyelitis. Chronic ulcer overlying coccyx. Pressure ulcer in region of sacrum and coccyx. COMPARISON: None TECHNIQUE: Anatomic and fluid sensitive MR sequences of the pelvis were obtained on 3 Christine platform. Volume of contrast administered: 20 mL Imaging before and after the IV administration of contrast. Type of contrast: Dotarem Volume of contrast discarded: 0 mL FINDINGS: URINARY BLADDER: The bladder wall is trabeculated and thickened. No focal mass. VISUALIZED GI TRACT: No suspicious abnormality PELVIC VISCERA: No suspicious abnormality. LYMPHOVASCULAR: There is no aneurysm demonstrated. There are some nonspecific inguinal lymph nodes. There are some nonspecific left common iliac and external iliac lymph nodes. LOWER ABDOMINAL WALL: There is laxity of the lower abdominal wall. No large bowel hernia in the inguinal region on either side. PERITONEAL SPACES/FLUID: No free fluid demonstrated MUSCULOSKELETAL: There is an irregular 5.1 x 3.0 cm rim-enhancing collection involving and surrounding the left inferior pubic ramus extending to the posterior acetabulum which appears associated with a underlying ulcer. This likely represents an abscess. There is some abnormal signal and enhancement abutting the tip of the coccyx. There is no underlying marrow signal abnormality. Periostitis may be present. OTHER: The region of the lateral pelvic soft tissues is excluded. Including the area around the greater trochanters. Abnormal T2 signal between the iliac bones and the iliopsoas is nonspecific. There is marked atrophy of the right iliopsoas. Procedure Note Victor Hugo Martinez MD - 06/23/2025 EXAMINATION: MRI PELVIS WITHOUT AND WITH CONTRAST CLINICAL INFORMATION: History of osteomyelitis. Chronic ulcer overlying coccyx. Pressure ulcerin region of sacrum and coccyx. COMPARISON: None TECHNIQUE: Anatomic and fluid sensitive MR sequences of the pelvis were obtained on 3[employer]la platform. Volume of contrast administered: 20 mL Imaging before and after the IV administration of contrast. Type of contrast: Dotarem Volume of contrast discarded: 0 mL FINDINGS: URINARY BLADDER: The bladder wall is trabeculated and thickened. No focalmass. VISUALIZED GI TRACT: No suspicious abnormality PELVIC VISCERA: No suspicious abnormality. LYMPHOVASCULAR: There is no aneurysm demonstrated. There are somenonspecific inguinal lymph nodes. There are some nonspecific left commoniliac and external iliac lymph nodes. LOWER ABDOMINAL WALL: There is laxity of the lower abdominal wall. Nolarge bowel hernia in the inguinal region on either side. PERITONEAL SPACES/FLUID: No free fluid demonstrated MUSCULOSKELETAL: There is an irregular 5.1 x 3.0 cm rim-enhancingcollection involving and surrounding the left inferior pubic ramusextending to the posterior acetabulum which appears associated with aunderlying ulcer. This likely represents an abscess. There is some abnormal signal and enhancement abutting the tip of thecoccyx. There is no underlying marrow signal abnormality. Periostitis maybe present. OTHER: The region of the lateral pelvic soft tissues is excluded.Including the area around the greater trochanters. Abnormal T2 signal between the iliac bones and the iliopsoas isnonspecific. There is marked atrophy of the right iliopsoas. IMPRESSION: Rim-enhancing collection associated with an area of osteomyelitisinvolving the left inferior pubic ramus extending toward the ischium andposterior acetabulum which measures approximately 5.1 x 3.0 cm. Thisappears to be associated with an ulcer. I suspect decubitus overlying the distal sacrum and coccyx with someabnormal enhancement at the level of the cortex. This could reflect someperiostitis without nathan bone destruction -------- FINAL REPORT -------- Dictated By: Victor Hugo Martinez Dictated Date: 06/23/2025 06:28 ET Assigned Physician: Victor Hugo Martinez Reviewed and Electronically Signed By: Victor Hguo Martinez Signed Date: 06/23/2025 07:52 ET Workstation ID: [id number] Transcribed By: Self Edit Transcribed Date: 06/23/2025 06:31 ET us Walter MEI IMG MRI PROCEDURES Final Re sult * (ABNORMAL) CBC auto differential (06/09/2025 11:11 AM EDT) Only the most recent of2 resultswithin the time period is included. [facility] Signature WBC 5.7 4.8 - 10.8 K/mcL LAB HEMETOLOGY METHOD 06/09/2025 1:31 PM [facility] RBC 4.40(L) 4.50 - 5.50 M/mcL LAB HEMETOLOGY METHOD 06/09/2025 1:31 PM [facility] Hemoglobin 11.1(L) 13.5 - 17.5 g/dL LAB HEMETOLOGY METHOD 06/09/2025 1:31 PM [facility] Hematocrit 35.0(L) 42.0 - 54.0 % LAB HEMETOLOGY METHOD 06/09/2025 1:31 PM [facility] MCV 79.5 79.0 - 98.0 FL LAB HEMETOLOGY METHOD 06/09/2025 1:31 PM [facility] MCH 25.2(L) 27.0 - 32.0 pcg LAB HEMETOLOGY METHOD 06/09/2025 1:31 PM [facility] MCHC 31.7(L) 32.0 - 37.0 g/dL LAB HEMETOLOGY METHOD 06/09/2025 1:31 PM [facility] RDW 18.6(H) 11.0 - 15.0 % LAB HEMETOLOGY METHOD 06/09/2025 1:31 PM [facility] Platelets 325 130 - 400 K/mcL LAB HEMETOLOGY METHOD 06/09/2025 1:31 PM [facility] MPV 9.9 7.0 - 11.0 FL LAB HEMETOLOGY METHOD 06/09/2025 1:31 PM [facility] NRBC 0.0 <1.0 % LAB HEMETOLOGY METHOD 06/09/2025 1:31 PM [facility] NRBC Absolute 0.00 <0.10 K/mcL LAB HEMETOLOGY METHOD 06/09/2025 1:31 PM [facility] Neutrophils Relative 63.4 % LAB HEMETOLOGY METHOD 06/09/2025 1:31 PM [facility] Lymphocytes Relative 21.5 % LAB HEMETOLOGY METHOD 06/09/2025 1:31 PM [facility] Monocytes Relative 9.9 % LAB HEMETOLOGY METHOD 06/09/2025 1:31 PM [facility] Eosinophils Relative 4.1 % LAB HEMETOLOGY METHOD 06/09/2025 1:31 PM [facility] Basophils Relative 0.7 % LAB HEMETOLOGY METHOD 06/09/2025 1:31 PM [facility] Immature Granulocytes Relative 0.4 % LAB HEMETOLOGY METHOD 06/09/2025 1:31 PM [facility] Neutrophils Absolute 3.60 1.50 - 7.00 K/mcL LAB HEMETOLOGY METHOD 06/09/2025 1:31 PM [facility] Lymphocytes Absolute 1.22 1.00 - 5.00 K/mcL LAB HEMETOLOGY METHOD 06/09/2025 1:31 PM [facility] Monocytes Absolute 0.56 0.20 - 1.00 K/mcL LAB HEMETOLOGY METHOD 06/09/2025 1:31 PM [facility] Eosinophils Absolute 0.23 0.00 - 0.50 K/mcL LAB HEMETOLOGY METHOD 06/09/2025 1:31 PM [facility] Basophils Absolute 0.04 0.00 - 0.20 K/mcL LAB HEMETOLOGY METHOD 06/09/2025 1:31 PM [facility] Immature Granulocytes Absolute 0.02 0.00 - 0.03 K/mcL LAB HEMETOLOGY METHOD 06/09/2025 1:31 PM EDT [facility] Blood Venous blood specimen / Unknown Venipuncture / Unknown 06/09/2025 11:11 AM EDT 06/09/2025 1:05 PM EDT Walter MEI LAB BLOOD ORDERABLES Final Result Performing Organization Address [facility]/ZIP Co de Phone Number [facility] [address] [place] [address], [place] [phone] * (ABNORMAL) C-reactive protein (06/09/2025 11:11 AM EDT) [facility] C-Reactive Protein 0.67(H) <=0.50 mg/dL LAB CHEMISTRY METHOD 06/09/2025 3:23 PM EDT [facility] Blood Venous blood specimen / Unknown Venipuncture / Unknown 06/09/2025 11:11 AM EDT 06/09/2025 1:04 PM EDT Walter MEI LAB BLOOD ORDERABLES Final Result Performing Organization Address [facility]/ZIP Co de Phone Number [facility] [address] [place] [address], [place] [phone] * (ABNORMAL) Basic metabolic panel (06/09/2025 11:11 AM EDT) [facility] Sodium 139 133 - 145 mmol/L LAB CHEMISTRY METHOD 06/09/2025 3:23 PM EDT [facility] Potassium 4.2 3.5 - 5.5 mmol/L LAB CHEMISTRY METHOD 06/09/2025 3:23 PM EDT [facility] Chloride 106 96 - 110 mmol/L LAB CHEMISTRY METHOD 06/09/2025 3:23 PM EDT [facility] CO2 26 21 - 32 mmol/L LAB CHEMISTRY METHOD 06/09/2025 3:23 PM EDT [facility] Anion Gap 7 3 - 11 LAB CHEMISTRY METHOD 06/09/2025 3:23 PM EDT [facility] Glucose 126(H) 70 - 100 mg/dL LAB CHEMISTRY METHOD 06/09/2025 3:23 PM EDT [facility] BUN 9 5 - 25 mg/dL LAB CHEMISTRY METHOD 06/09/2025 3:23 PM EDT [facility] Creatinine 0.73 0.70 - 1.30 mg/dL LAB CHEMISTRY METHOD 06/09/2025 3:23 PM EDT [facility] eGFR 105 >=60 mL/min/1. 73m2 LAB CHEMISTRY METHOD 06/09/2025 3:23 PM EDT [facility] Comment:Calculation based on the Chronic Kidney Disease Epidemiology Collaboration (CKD-EPI) equation refit without adjustment for race. BUN/Creatinine Ratio 12.3 LAB CHEMISTRY METHOD 06/09/2025 3:23 PM EDT [facility] Calcium 8.8 8.5 - 10.5 mg/dL LAB CHEMISTRY METHOD 06/09/2025 3:23 PM EDT [facility] Blood Venous blood specimen / Unknown Venipuncture / Unknown 06/09/2025 11:11 AM EDT 06/09/2025 1:04 PM EDT Walter MEI LAB BLOOD ORDERABLES Final Result [facility] [address] [place] [address], * Debridement Pressure Injury Sacrum (05/19/2025 3:00 PM EDT) Narrative Yuan Dickerson MD - 05/19/2025 3:00 PM EDT HAMIDA Vegas 05/20/2025 7:39 AM Debridement Pressure Injury Sacrum Performed by: HAMIDA Vegas Authorized by: HAMIDA Vegas Associated wounds: Wound Pressure Injury 03/17/25 Sacrum Consent: Consent obtained: Verbal Consent given by: Patient Risks discussed: Yes Time out: Immediately prior to the procedure a time out was called Debridement Details: Performed by: PA Type: selective Pain control: Lidocaine 5% Severity of Tissue Pre Debridement: Limited to breakdown of skin Severity of Tissue Post Debridement: Limited to breakdown of skin Time taken: 05/19/2025 3:13 PM Length (cm): 0.1 Width (cm): 0.1 Depth (cm): 0.1 Area (cm^2): 0.01 Time taken: 05/19/2025 3:14 PM Length (cm): 0.1 Width (cm): 0.1 Depth (cm): 0.1 Percent Debrided (%): 100 Surface Area (cm^2): 0.01 Area Debrided (cm^2): 0.01 Volume (cm^3): 0 Tissue and other material debrided: dermis and epidermis Devitalized tissue debrided: callus Instrument: Curette Amount of bleeding: none Hemostasis obtained with: Not applicable Procedural pain: Insensate Post-procedural pain: Insensate Response to treatment: Procedure was tolerated well Walter MEI IN CLINIC/BEDSIDE ORDERABLE S Final Result * (ABNORMAL) Urinalysis with reflex microscopic and culture (05/10/2025 4:53 PM EDT) Specific [place] Urine 1.009 1.003 - 1.030 LAB URINALYSIS - AUTOMATED METHOD 05/10/2025 8:35 PM [facility] pH, Urine 7.5 5.0 - 8.0 pH LAB URINALYSIS - AUTOMATED METHOD 05/10/2025 8:35 PM [facility] Leukocytes, Urine Moderate(A) Negative LAB URINALYSIS - AUTOMATED METHOD 05/10/2025 8:35 PM [facility] Nitrite, Urine Positive(A) Negative LAB URINALYSIS - AUTOMATED METHOD 05/10/2025 8:35 PM [facility] Protein, Urine Negative <=Trace mg/dL LAB URINALYSIS - AUTOMATED METHOD 05/10/2025 8:35 PM [facility] Glucose, Urine Negative Negative mg/dL LAB URINALYSIS - AUTOMATED METHOD 05/10/2025 8:35 PM EDT [facility] Ketones, Urine Negative Negative mg/dL LAB URINALYSIS - AUTOMATED METHOD 05/10/2025 8:35 PM EDT [facility] Urobilinogen , Urine 0.2 0.2 - 1.0 mg/dL LAB URINALYSIS - AUTOMATED METHOD 05/10/2025 8:35 PM EDT [facility] Bilirubin, Urine Negative Negative LAB URINALYSIS - AUTOMATED METHOD 05/10/2025 8:35 PM EDT [facility] Blood, Urine Negative Negative LAB URINALYSIS - AUTOMATED METHOD 05/10[facility]25 [facility] RBC, Urine 0.5 0 - 4 /HPF LAB URINALYSIS - AUTOMATED METHOD 05/10/2025 8:[facility] WBC, Urine 20.0(H) 0 - 4 /HPF LAB URINALYSIS - AUTOMATED METHOD 05/10/2025 8:35 PM EDT [facility] Squamous Epithelial, Urine 40 0 - 60 /LPF LAB URINALYSIS - AUTOMATED METHOD 05/10/2025 8:35 [facility] Bacteria, Urine Many(A) Negative /HPF LAB URINALYSIS - AUTOMATED METHOD 05/10/2025 8:35 PM [facility] Hyaline Casts, Urine 0.0 0 - 3 /LPF LAB URINALYSIS - AUTOMATED METHOD 05/10/2025 8:35 PM EDT [facility] Urine Urine specimen obtained by clean catch procedure / Unknown Non-blood Collection / Unknown 05/10/2025 4:53 PM EDT 05/10/2025 4:53 PM EDT us Samina Sosa NP LAB URINE ORDERABLES Final Resu lt [facility] [address] [place] [address], * (ABNORMAL) Culture urine (05/10/2025 4:53 PM EDT) Culture, Urine >=100,000 CFU/mL Klebsiella pneumoniae ssp pneumoniae(A) 05/13/2025 10:30 AM EDT [facility] Comment: This is an edited result. Previous organism was Gram negative bacilli on 05/11/2025 at 1333 EDT. Urine Urine specimen obtained by clean catch procedure / Unknown Non-blood Collection / Unknown 05/10/2025 4:53 PM EDT 05/10/2025 8:35 PM EDT Narrative Organism Antibiotic Method Susceptibility Klebsiella pneumoniae ssp pneumoniae Amikacin DISK DIFFUSION Intermediate Klebsiella pneumoniae ssp pneumoniae Amoxicillin/Clavulanate DISK DIFFUSION Resistant Klebsiella pneumoniae ssp pneumoniae Ampicillin/Sulbactam DISK DIFFUSION Resistant Klebsiella pneumoniae ssp pneumoniae Cefazolin DISK DIFFUSION Susceptible Klebsiella pneumoniae ssp pneumoniae Cefepime DISK DIFFUSION Susceptible Klebsiella pneumoniae ssp pneumoniae Cefoxitin DISK DIFFUSION Susceptible Klebsiella pneumoniae ssp pneumoniae Ceftazidime DISK DIFFUSION Susceptible Klebsiella pneumoniae ssp pneumoniae Ceftriaxone DISK DIFFUSION Susceptible Klebsiella pneumoniae ssp pneumoniae Ciprofloxacin DISK DIFFUSION Resistant Klebsiella pneumoniae ssp pneumoniae Gentamicin DISK DIFFUSION Susceptible Klebsiella pneumoniae ssp pneumoniae Levofloxacin DISK DIFFUSION Resistant Klebsiella pneumoniae ssp pneumoniae Meropenem DISK DIFFUSION Susceptible Klebsiella pneumoniae ssp pneumoniae Nitrofurantoin DISK DIFFUSION Resistant Klebsiella pneumoniae ssp pneumoniae Piperacillin/Tazobactam DISK DIFFUSION Resistant Klebsiella pneumoniae ssp pneumoniae Trimethoprim/Sulfamethoxazole DISK DIFFUSION Resistant Samina Sosa INORGANIC CHEMIST LAB MICROBIOLOGY - GENERAL PASHA URRUTIA Final Result [facility] [address] [place] [address], [place] [phone] * [place] urine culture tube (05/10/2025 4:52 PM EDT) Extra Tube Hold for add-ons. 05/10/2025 7:01 PM EDT [facility] Comment:Auto resulted. Urine Urine specimen obtained by clean catch procedure / Unknown Non-blood Collection / Unknown 05/10/2025 4:52 PM EDT 05/10/2025 4:52 PM EDT us Samina Sosa NP LAB URINE ORDERABLES Final Resu lt [facility] [address] [place] [address], [place] [phone] * Lipid panel with reflex to direct LDL (05/07/2025 11:03 AM EDT) Cholesterol 151 0 - 200 mg/dL LAB CHEMISTRY METHOD 05/07/2025 2:12 PM EDT [facility] Triglycerides 100 0 - 150 mg/dL LAB CHEMISTRY METHOD 05/07/2025 2:12 PM EDT [facility] HDL 43 >=40 mg/dL LAB CHEMISTRY METHOD 05/07/2025 2:12 PM EDT [facility] LDL Calculated 88 0 - 100 mg/dL LAB CHEMISTRY METHOD 05/07/2025 2:12 PM EDT [facility] VLDL Cholesterol Servando 20 mg/dL LAB CHEMISTRY METHOD 05/07/2025 2:12 PM EDT [facility] Non HDL Chol. (LDL+VLDL) 108 <145 mg/dL LAB CHEMISTRY METHOD 05/07/2025 2:12 PM EDT [facility] Chol/HDL Ratio 3.5 0.0 - 4.4 LAB CHEMISTRY METHOD 05/07/2025 2:12 PM EDT [facility] Blood Venous blood specimen / Unknown Venipuncture / Unknown 05/07/2025 11:03 AM EDT 05/07/2025 11:03 AM EDT Samina Sosa INORGANIC CHEMIST LAB BLOOD ORDERABLES Final Resu lt Performing Organization Address City/[facility]/ZIP Co de Phone Number [facility] [address] [place] [address], [place] [phone] * (ABNORMAL) Hemoglobin A1c (05/07/2025 11:03 AM EDT) [facility] Hemoglobin A1C 6.7(H) <6.5 % LAB CHEMISTRY METHOD 05/07/2025 11:02 PM EDT [facility] Mean Bld Glu Estim. 146 mg/dL LAB CHEMISTRY METHOD 05/07/2025 11:02 PM EDT [facility] Blood Venous blood specimen / Unknown Venipuncture / Unknown 05/07/2025 11:03 AM EDT 05/07/2025 11:03 AM EDT Samina Sosa NP LAB BLOOD ORDERABLES Final Resu lt Performing Organization Address City/[facility]/ZIP Co de Phone Number [facility] [address] [place] [address], [place] [phone] * GGT (05/07/2025 11:03 AM EDT) [facility] GGT 43 7 - 64 unit/L LAB CHEMISTRY METHOD 05/07/2025 2:02 PM EDT [facility] Blood Venous blood specimen / Unknown Venipuncture / Unknown 05/07/2025 11:03 AM EDT 05/07/2025 11:03 AM EDT Samina Sosa NP LAB BLOOD ORDERABLES Final Resu lt [facility] [address] [place] [address], [place] [phone] * (ABNORMAL) Hepatic function panel (05/07/2025 11:03 AM EDT) [facility] Total Protein 7.9 6.0 - 8.0 g/dL LAB CHEMISTRY METHOD 05/07/2025 2:13 PM EDT [facility] Albumin 3.9 3.2 - 5.0 g/dL LAB CHEMISTRY METHOD 05/07/2025 2:13 PM EDT [facility] Total Bilirubin 0.5 0.0 - 1.4 mg/dL LAB CHEMISTRY METHOD 05/07/2025 2:13 PM EDT [facility] Bilirubin, Direct 0.2 0.0 - 0.3 mg/dL LAB CHEMISTRY METHOD 05/07/2025 2:13 PM EDT [facility] Bilirubin, Indirect 0.3 0.0 - 1.1 mg/dL LAB CHEMISTRY METHOD 05/07/2025 2:13 PM EDT [facility] ALT (SGPT) 25 10 - 60 unit/L LAB CHEMISTRY METHOD 05/07/2025 2:13 PM EDT [facility] AST (SGOT) 18 10 - 42 unit/L LAB CHEMISTRY METHOD 05/07/2025 2:13 PM EDT [facility] Alkaline Phosphatase 147(H) 42 - 121 unit/L LAB CHEMISTRY METHOD 05/07/2025 2:13 PM EDT [facility] Blood Venous blood specimen / Unknown Venipuncture / Unknown 05/07/2025 11:03 AM EDT 05/07/2025 11:03 AM EDT Samina Sosa NP LAB BLOOD ORDERABLES Final Resu lt [facility] [address] [place] [address], from Last 3 Months Additional Health Concerns Active Problems Noted Date Diagnosed Date Impaired Tissue 10/28/2024 Education needed on impact of smoking on wound 0 10/28/2024 Education needed related to ulceration/compromised skin integrity. 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
--- OUTSIDE RECORDS SUMMARY | 2025-08-04 18:51 | XMS_ITS ---
Care Plan Created on: August 04, 2025 DominiqueDanny : 1965 Sex: Male Author Organization [facility] [address] [facility] [address] Address [address] [place] [address] Phone Care Team Providers Care Analysis Tester Name Role Phone Isaias Tuttle Primary Care Provider [phone] Active Problems Problem Noted Date Diagnosed Date Pressure injury of left isch ium, stage 2 ([facility] V24, [facility] V28) 07/20/2025 Osteomyelitis, pelvis ([facility] V24, [facility] V28) 06/29/2025 Abrasion of left hip 06/29/2025 Non-pressure chronic ulcer o f skin of other sites limited to breakdown of skin ([facility] V24, [facility] V28) 06/29/2025 Chronic venous hypertension (idiopathic) with ulcer of right lower extremity (CODE) ([facility] V24, [facility] V28) 06/29/2025 Non-pressure chronic ulcer o f other part of right lower leg with fat layer exposed ([facility] V24, [facility] V28) 06/29/2025 Pressure ulcer of coccygeal region, stage 3 ([facility] V24, [facility] V28) 04/07/2025 Pressure ulcer of left hip, stage 3 ([facility] V24, [facility] V28) 04/07/2025 Hyperkeratosis of skin 03/17/2025 Cardiac resynchronization th erapy defibrillator (DRAWING MACHINE OPERATOR-D) in place 01/15/2025 Assessment & Plan (08/03/2025 12:59 PM EDT): No recent history of VT breakthrough. ICD in place guideline directed therapy. DRAWING MACHINE OPERATOR-D therapy in place to also help with some of the dyskinesis. Assessment & Plan (01/15/2025 7:28 PM EDT): Patient has a [employer] DRAWING MACHINE OPERATOR therapy device in place. I am not [...] to baseline whether this was due to DRAWING MACHINE OPERATOR therapy which she does not think he [...] strain, and 3D order panel; Future Paraplegia (CMS/HCC V24, CMS/HCC V28) 09/14/2024 Neurogenic bladder 09/14/2024 Tinea 09/14/2024 Nonsustained ventricular tac hycardia ([facility] V24, [facility] V28) 09/14/2024 Type 2 diabetes mellitus wit hout complication, without long-term current use of insulin ([facility] V24, [facility] V28) 09/14/2024 Pressure injury of sacral re gion, stage 2 ([facility] V24, [facility] V28) 09/14/2024 Additional Health Concerns Active Problems Noted Date Diagnosed Date Impaired Tissue 10/28/2024 Education needed on impact of smoking on wound 0 10/28/2024 Education needed related to ulceration/compromised skin integrity. 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 Marisol Suarez RN Interventions Care Plan Interventions Intervention Entry Date Outcome Provide caregiver with wound care procedure information 10/28/2024 Educate caregiver on proper wound care procedures 10/28/2024 Give provider list of wound care supplies 10/28/2024 Refill wound care supplies 10/28/2024 Send Wound Care Supplies 10/28/2024 Give provider list of wound care supplies 10/28/2024 Refill wound care supplies 10/28/2024 Send Wound Care Supplies 10/28/2024 Provide caregiver with wound care procedure information 10/28/2024 Educate caregiver on proper wound care procedures 10/28/2024 Document patient eligibility for HBO 10/28/2024 Assess patient for HBO treatment 10/28/2024 Record wound depth 10/28/2024 Record total wound area 10/28/2024 Measure wound progress 10/28/2024 Create an action plan identifying patient strengths and supports 10/28/2024 Establish quit date with patient 10/28/2024 Discuss prior cessation attempts 10/28/2024 Discuss preferred method of cessation and plan 10/28/2024 Discuss barriers to smoking cessation 10/28/2024 Discuss smoking status with patient 10/28/2024 Create an action plan identifying patient strengths and supports 10/28/2024 Establish quit date with patient 10/28/2024 Discuss prior cessation attempts 10/28/2024 Discuss preferred method of cessation and plan 10/28/2024 Discuss barriers to smoking cessation 10/28/2024 Discuss smoking status with patient 10/28/2024 Provide caregiver with wound care procedure information 10/28/2024 Educate caregiver on proper wound care procedures 10/28/2024 Document patient eligibility for HBO 10/28/2024 Assess patient for HBO treatment 10/28/2024 Record wound depth 10/28/2024 Record total wound area 10/28/2024 Measure wound progress 10/28/2024 Provide caregiver with wound care procedure information 10/28/2024 Educate caregiver on proper wound care procedures 10/28/2024 Document patient eligibility for HBO 10/28/2024 Assess patient for HBO treatment 10/28/2024 Record wound depth 10/28/2024 Record total wound area 10/28/2024 Measure wound progress 10/28/2024 Provide caregiver with wound care procedure information 10/28/2024 Educate caregiver on proper wound care procedures 10/28/2024 Document patient eligibility for HBO 10/28/2024 Assess patient for HBO treatment 10/28/2024 Record wound depth 10/28/2024 Record total wound area 10/28/2024 Measure wound progress 10/28/2024 Provide caregiver with wound care procedure information 10/28/2024 Educate caregiver on proper wound care procedures 10/28/2024 Give provider list of wound care supplies 10/28/2024 Give provider list of wound care supplies 10/28/2024 Refill wound care supplies 10/28/2024 Send Wound Care Supplies 10/28/2024 Provide caregiver with wound care procedure information 10/28/2024 Educate caregiver on proper wound care procedures 10/28/2024 Document patient eligibility for HBO 10/28/2024 Assess patient for HBO treatment 10/28/2024 Record wound depth 10/28/2024 Record total wound area 10/28/2024 Measure wound progress 10/28/2024 Related Goals and Interventions Goal Associated Intervent ions Decrease Wound Volume by X% by date (in notes) Give provider list of wound care supplie s; Refill wound care supplies; Send Wound Care Supplies; Provide caregiver with wound care procedure information; Educate caregiver on proper wound care procedures; Document patient eligibility for HBO; Assess patient for HBO treatment; Record wound depth; Record total wound area; Measure wound progress Patient and Caregiver Unders tand Wound Care Education Provide caregiver with wound care proced ure information; Educate caregiver on proper wound care procedures; Give provider list of wound care supplies Wound volume breakdown reduc ed by X% by week 4 Provide caregiver with wound care proced ure information; Educate caregiver on proper wound care procedures; Document patient eligibility for HBO; Assess patient for HBO treatment; Record wound depth; Record total wound area; Measure wound progress Wound volume breakdown reduc ed by X% by week 8 Provide caregiver with wound care proced ure information; Educate caregiver on proper wound care procedures; Document patient eligibility for HBO; Assess patient for HBO treatment; Record wound depth; Record total wound area; Measure wound progress Wound volume breakdown reduc ed by X% by week 12 Provide caregiver with wound care proced ure information; Educate caregiver on proper wound care procedures; Document patient eligibility for HBO; Assess patient for HBO treatment; Record wound depth; Record total wound area; Measure wound progress Quit using tobacco (cigarett es, smokeless, etc) Create an action plan identifying patien t strengths and supports; Establish quit date with patient; Discuss prior cessation attempts; Discuss preferred method of cessation and plan; Discuss barriers to smoking cessation; Discuss smoking status with patient Reduce tobacco use (cigarett es, smokeless, etc) Create an action plan identifying patien t strengths and supports; Establish quit date with patient; Discuss prior cessation attempts; Discuss preferred method of cessation and plan; Discuss barriers to smoking cessation; Discuss smoking status with patient Decrease Wound Volume by X% by date (in notes) Give provider list of wound care supplie s; Refill wound care supplies; Send Wound Care Supplies; Provide caregiver with wound care procedure information; Educate caregiver on proper wound care procedures; Document patient eligibility for HBO; Assess patient for HBO treatment; Record wound depth; Record total wound area; Measure wound progress Patient and Caregiver Unders tand Wound Care Education Provide caregiver with wound care proced ure information; Educate caregiver on proper wound care procedures; Give provider list of wound care supplies; Refill wound care supplies; Send Wound Care Supplies
== END 2025-08-04 15:31 | disposition home or self-care (01) ==
LOC: HO.HID 14:29
PROVIDERS: Visit Provider Internal Medicine
DX: M86.9 Osteomyelitis, unspecified (principal)
CPT/HCPCS: 99203

== ENCOUNTER → 2025-08-04 14:29 | Outpatient (BNVA) | payer MEDICARE, SELFPAY | PROVIDERS: Visit Provider Internal Medicine | DX: M86.9 Osteomyelitis, unspecified (principal); L89.159 Pressure ulcer of sacral region, unspecified stage; G82.20 Paraplegia, unspecified; N39.0 Urinary tract infection, site not specified; Z79.2 Long term (current) use of antibiotics | CPT/HCPCS: 99202 ==